=== PATIENT | male | born 1970 | race African-American/Black ===

== ENCOUNTER 2016-11-26 14:43 | Emergency (ER) | payer SELFPAY ==
[~2016-11-26] VITALS: Ht 182.9 cm; Wt 97.0 kg
[2016-11-26] MEDS ORDERED: IBUPROFEN 800MG TABLET PO ONE (15:30)
[2016-11-26] MEDS ORDERED: LIDOCAINE HCL 1% 20ML VIAL (Pyxis) INJ INFIL ONE (15:30)
[2016-11-26] MEDS ORDERED: AMOXICILLIN/POTASSIUM CLAVULANATE 875/125MG TAB PO ONE (15:30)
[2016-11-26 17:41] VITALS: BP 115/67
== END 2016-11-26 17:44 | disposition home or self-care (01) ==
LOC: ER 15:56
DX: L03.011 Cellulitis of right finger (principal); I10 Essential (primary) hypertension; R73.9 Hyperglycemia, unspecified
CPT/HCPCS: 10060; 73140; 82962; 87070; 87077; 87186; 87205; 99285; J3490

== ENCOUNTER 2016-12-01 14:06 | Emergency (ER) | payer SELFPAY ==
[~2016-12-01] VITALS: Ht 185.4 cm; Wt 144.0 kg
[2016-12-01] MEDS ORDERED: KETOROLAC 60MG/2ML VIAL IM ONE (16:15)
[2016-12-01] MEDS ORDERED: BACITRACIN ZINC OINT UDPKT TOP ONE (16:30)
[2016-12-01 16:41] VITALS: BP 134/82
== END 2016-12-01 17:13 | disposition home or self-care (01) ==
LOC: ER 14:10
DX: L03.011 Cellulitis of right finger (principal); F17.211 Nicotine dependence, cigarettes, in remission; R03.0 Elevated blood-pressure reading, without diagnosis of hypertension; Z91.14 Patient's other noncompliance with medication regimen; Z71.89 Other specified counseling
CPT/HCPCS: 96372; 99283; J1885